=== PATIENT | female | born 1950 | race Caucasian/White ===

== ENCOUNTER → 2016-12-24 | Outpatient (REF) | payer MEDICARE, OTHER ==
[~2016-12-24] MED LIST: ALDA25TA2 PO; ASPI325T PO; CARV6.25 PO; PACE200T PO; SYNT25TA PO
[2016-12-24 11:53] LABS: ALBUMIN 3.8 GM/DL (3.2-5.2); ALBUMIN/GLOBULIN RATIO 1.15 (1.00-1.93); ALKALINE PHOSPHATASE 100 U/L (45-117); ALT/SGPT 21 U/L (12-78); ANION GAP 8 MEQ/L (8-16); AST/SGOT 13 U/L (15-37); BILIRUBIN,TOTAL 0.6 MG/DL (0.2-1.0); BLOOD UREA NITROGEN 19 MG/DL (7-18); CALCIUM LEVEL 9.1 MG/DL (8.8-10.2); CARBON DIOXIDE LEVEL 30 MEQ/L (21-32); CHLORIDE LEVEL 104 MEQ/L (98-107); CREATININE FOR GFR 0.96 MG/DL (0.55-1.02); FREE T4 1.23 NG/DL (0.76-1.46); GLOMERULAR FILTRATION RATE > 60.0 (>45); GLUCOSE, FASTING 81 MG/DL (80-110); POTASSIUM SERUM 4.4 MEQ/L (3.5-5.1); SODIUM LEVEL 142 MEQ/L (136-145); TOTAL PROTEIN 7.1 GM/DL (6.4-8.2)
[2016-12-24 12:00] LABS: BASO % 0.6 % (0.0-1.0); EOS # 0.1 K/mm3 (0.0-0.50); EOS % 2.3 % (0.0-3.0); LARGE UNSTAINED CELL # 0.2 K/mm3 (0.0-0.4); LARGE UNSTAINED CELL % 2.8 % (0.0-4.0); LYMPH % 35.4 % (24.0-44.0); MEAN CORPUSCULAR HEMOGLOBIN 29.4 pg (27.0-33.0); MEAN CORPUSCULAR HGB CONC 31.9 g/dl (32.0-36.5); MEAN CORPUSCULAR VOLUME 92.1 fl (80.0-96.0); MONO # 0.3 K/mm3 (0.0-0.8); MONO % 4.9 % (0.0-5.0); NEUTROPHILS # 3.1 K/mm3 (1.8-7.7); PLATELET COUNT, AUTOMATED 354 k/mm3 (150-450); WHITE BLOOD COUNT 5.7 K/mm3 (4.0-10.0)
== END ==
LOC: M SFHCPLAZ 09:56
PROVIDERS: ATTEND Dermatology
DX: L29.9 Pruritus, unspecified (principal)
CPT/HCPCS: 36415; 80053; 84439; 84443; 85025; G0463

== ENCOUNTER → 2017-01-21 | Outpatient (REF) | payer MEDICARE, OTHER | LOC: M SFHCADAM 08:12 | PROVIDERS: ATTEND Family Medicine | DX: E78.2 Mixed hyperlipidemia (principal) ==

== ENCOUNTER → 2017-01-22 | Outpatient (CLI) | payer MEDICARE, OTHER ==
--- NOTE | 2017-01-22 13:43 | REP ---
THYROID SONOGRAPHY: HISTORY: Thyroid nodule. Patient on thyroid hormone treatment. Comparison thyroid sonography May 14, 2010. FINDINGS: Thyroid isthmus is 0.5 cm in thickness. Right lobe dimensions of 4.4 x 1.4 x 1.6 cm. Left lobe measures 4.5 x 1.5 x 1.6 cm. Gland remains heterogeneous bilaterally. There is a 1.1 x 0.9 x 0.8 cm somewhat heterogeneous predominantly solid nodule in the lower pole of the left lobe. No other identifiable thyroid nodule. IMPRESSION: Heterogeneous glandular texture. One predominantly solid nodule seen today lower pole left lobe 1.1 cm in greatest diameter. Signed by Radhames Johnson MD 01/22/2017 04:46 P
== END ==
LOC: M RAD 09:45
PROVIDERS: ATTEND Family Medicine
DX: E04.1 Nontoxic single thyroid nodule (principal)

== ENCOUNTER → 2017-02-16 | Outpatient (CLI) | payer MEDICARE, OTHER ==
--- NOTE | 2017-02-17 08:29 | DEXA ---
AP SPINE L1 - L4 0.928 -2.2 -0.4 LT FEMUR TOTAL 0.726 -2.2 -0.9 RT FEMUR TOTAL 0.728 -2.2 -0.9 TOTAL BODY TOTAL OTHER DUAL FEMUR FRAX* ASSESSMENT Risk factors: History of adult fractures. 10 year probability of fracture Major osteoporotic fracture 21.8 % Hip fracture 4.9 % COMMENTS: There is low bone density of the spine and hips. The density of the spine has increased 1.9% since the initial exam on 2009. The spine density has decreased 3.7% since the most recent exam on 02/06/2012. The density of the left hip has increased 0.1% since the initial exam on 2009. The density of the left hip has decreased 3.7% since the most recent exam on 01/2012. The density of the right hip has decreased 1.8% since the initial exam on 2009. The density of the right hip has decreased 1.0% since the most recent exam on . FOLLOW-UP: Recommendation for the next bone density exam: 2 years. CLAUDIAD
== END ==
LOC: M WHC 10:01
PROVIDERS: ATTEND Family Medicine
DX: M85.80 Other specified disorders of bone density and structure, unspecified site (principal); Z78.0 Asymptomatic menopausal state

== ENCOUNTER → 2017-08-18 | Outpatient (REF) | payer MEDICARE, OTHER ==
[2017-08-18 16:10] LABS: ANION GAP 6 MEQ/L (8-16); BLOOD UREA NITROGEN 23 MG/DL (7-18); CARBON DIOXIDE LEVEL 29 MEQ/L (21-32); CHLORIDE LEVEL 109 MEQ/L (98-107); CREATININE FOR GFR 0.88 MG/DL (0.55-1.02); GLOMERULAR FILTRATION RATE > 60.0 (>45); GLUCOSE, FASTING 85 MG/DL (80-110); POTASSIUM SERUM 4.3 MEQ/L (3.5-5.1); SODIUM LEVEL 144 MEQ/L (136-145)
== END ==
LOC: M LABDRWAD 15:51
PROVIDERS: ATTEND Nurse Practitioner Family
DX: I11.9 Hypertensive heart disease without heart failure (principal)

== ENCOUNTER → 2017-09-02 | Outpatient (CLI) | payer MEDICARE, OTHER ==
--- NOTE | 2017-09-02 09:48 | REPMRS ---
Patient History The patient states she had a clinical breast exam in 08/2017. Patient is postmenopausal. No known family history of cancer. Took hormonal contraceptives for 5 years. Took unspecified hormones for 3 years. Digital Woman Screen Mammo: September 02, 2017 - Exam #: [id number] Bilateral CC and MLO view(s) were taken. Technologist: Vidhya Cao, Technologist Prior study comparison: May 13, 2016, digital woman screen mammo performed at [facility]. March 21, 2015, bilateral digital mammo screening bilat, performed at [facility]. November 22, 2013, bilateral bilat screen digital mammo, performed at [facility] ([facility]). FINDINGS: There are scattered fibroglandular densities. There has been no change in the appearance of the mammogram from the prior studies. There is a mild amount of scattered fibroglandular density which is fairly symmetric. There is no interval development of dominant mass, architectural distortion, or clustered microcalcification suggestive of malignancy. ASSESSMENT: BI-RADS/ACR category 1 mammogram. Negative. Recommendation Routine screening mammogram in 1 year (for women over age 40). This mammogram was interpreted with the aid of an FDA-approved computer-aided dectection system. Electronically Signed By: Natalio Johnson MD 09/02/17 0980
== END ==
LOC: M WHC 09:01
PROVIDERS: ATTEND Obstetrics & Gynecology
DX: Z12.31 Encounter for screening mammogram for malignant neoplasm of breast (principal); Z78.0 Asymptomatic menopausal state

== ENCOUNTER → 2018-06-24 | Outpatient (REF) | payer MEDICARE, OTHER | LOC: M LAB REF 13:08 | DX: N39.0 Urinary tract infection, site not specified (principal) | CPT/HCPCS: 87186 ==

== ENCOUNTER → 2018-09-18 | Outpatient (REF) | payer MEDICARE, OTHER | LOC: M LAB REF 13:29 | PROVIDERS: ATTEND Physician Assistant Medical | DX: N39.0 Urinary tract infection, site not specified (principal) ==

== ENCOUNTER → 2018-10-26 | Outpatient (CLI) | payer MEDICARE, OTHER ==
--- NOTE | 2018-10-26 10:06 | REPMRS ---
Patient History The patient states she had a clinical breast exam in 08/2018. No known family history of cancer. Took hormonal contraceptives for 5 years. Took unspecified hormones for 3 years. Digital Woman Screen Mammo: October 26, 2018 - Exam #: [id number] Bilateral CC and MLO view(s) were taken. Technologist: Vidhya Cao, Technologist Prior study comparison: September 02, 2017, digital woman screen mammo performed at [facility]. May 13, 2016, digital woman screen mammo performed at [facility]. March 21, 2015, bilateral digital mammo screening bilat, performed at [facility]. FINDINGS: There are scattered fibroglandular densities. There is a moderate amount of residual fibroglandular tissue which is fairly symmetric. There is no interval development of dominant mass, architectural distortion, or clustered microcalcification typical of malignancy. There has been no change in the appearance of the mammogram from the prior studies. 3-D tomosynthesis shows no additional findings. Assessment: BI-RADS/ACR category 1 mammogram. Negative Mammogram. Recommendation Routine screening mammogram of both breasts in 1 year (for women over age 40). This patient's Lifetime Breast Cancer RIsk is estimated at 6.2 %. This mammogram was interpreted with the aid of an FDA-approved computer-aided dectection system. Electronically Signed By: Natalio Johnson MD 10/26/18 1877
== END ==
LOC: M WHC 08:14
PROVIDERS: ATTEND Obstetrics & Gynecology
DX: Z12.31 Encounter for screening mammogram for malignant neoplasm of breast (principal); Z92.0 Personal history of contraception; Z92.29 Personal history of other drug therapy

== ENCOUNTER → 2019-10-25 | Outpatient (REF) | payer MEDICARE, OTHER ==
[2019-10-25 17:21] LABS: HEMOGLOBIN 14.5 g/dl (12.0-15.5); MEAN CORPUSCULAR HGB CONC 32.2 g/dl (32.0-36.5); PLATELET COUNT, AUTOMATED 394 10^3/uL (150-450); RED BLOOD COUNT 4.84 10^6/uL (4.00-5.40); WHITE BLOOD COUNT 7.3 10^3/uL (4.0-10.0)
[2019-10-25 17:22] LABS: ALBUMIN 4.1 GM/DL (3.2-5.2); ALT/SGPT 16 U/L (12-78); BILIRUBIN,TOTAL 0.5 MG/DL (0.2-1.0); BLOOD UREA NITROGEN 18 MG/DL (7-18); CALCIUM LEVEL 9.2 MG/DL (8.8-10.2); CARBON DIOXIDE LEVEL 27 MEQ/L (21-32); CHLORIDE LEVEL 105 MEQ/L (98-107); CHOLESTEROL LEVEL 309 MG/DL (<200); CHOLESTEROL RISK RATIO 4.544 (<5); CREATININE FOR GFR 0.88 MG/DL (0.55-1.30); FREE T4 1.33 NG/DL (0.76-1.46); GLOMERULAR FILTRATION RATE > 60.0 (>45); GLUCOSE, FASTING 76 MG/DL (70-100); HDL CHOLESTEROL 68 MG/DL (>40); LDL CHOLESTEROL 222 MG/DL (<100); NON-HDL-C 241 MG/DL; POTASSIUM SERUM 4.3 MEQ/L (3.5-5.1); SODIUM LEVEL 139 MEQ/L (136-145); TOTAL PROTEIN 7.3 GM/DL (6.4-8.2); TRIGLYCERIDES LEVEL 94 MG/DL (<150)
== END ==
LOC: M SFHCADAM 11:41
PROVIDERS: ATTEND Family Medicine
DX: I48.0 Paroxysmal atrial fibrillation (principal); M85.80 Other specified disorders of bone density and structure, unspecified site; E04.1 Nontoxic single thyroid nodule; E78.2 Mixed hyperlipidemia; Z23 Encounter for immunization
CPT/HCPCS: 80053; 80061; 84439; 84443; 85027; 90670; G0009; G0463

== ENCOUNTER → 2019-11-23 | Outpatient (CLI) | payer MEDICARE, OTHER ==
--- NOTE | 2019-11-23 09:45 | REPMRS ---
Patient History The patient states she had a clinical breast exam in October 2019.No known family history of cancer. Took hormonal contraceptives for 5 years. Took unspecified hormones for 3 years. Digital Woman Screen Mammo: November 23, 2019 - Exam #: [id number] Bilateral CC and MLO view(s) were taken. Technologist: Kemi Chi, Technologist Prior study comparison: October 26, 2018, bilateral digital woman screen mammo performed at [facility]. September 02, 2017, digital woman screen mammo performed at [facility]. May 13, 2016, digital woman screen mammo performed at [facility]. FINDINGS: There are scattered fibroglandular densities. There has been no change in the appearance of the mammogram from the prior studies. There is a mild amount of scattered fibroglandular density which is fairly symmetric. There is no interval development of dominant mass, architectural distortion, or grouped microcalcification suggestive of malignancy. 3-D tomosynthesis shows no additional findings. Assessment: BI-RADS/ACR category 1 mammogram. Negative Mammogram. Recommendation Routine screening mammogram of both breasts in 1 year (for women over age 40). This patient's Lifetime Breast Cancer Risk is estimated at 5.8 %. This mammogram was interpreted with the aid of an FDA-approved computer-aided dectection system. Electronically Signed By: Natalio Johnson MD 11/23/19 0944
== END ==
LOC: M WHC 09:04
PROVIDERS: ATTEND Obstetrics & Gynecology
DX: Z12.31 Encounter for screening mammogram for malignant neoplasm of breast (principal); Z92.0 Personal history of contraception; Z92.29 Personal history of other drug therapy

== ENCOUNTER → 2019-11-23 | Outpatient (CLI) | payer MEDICARE, OTHER ==
--- NOTE | 2019-11-23 09:55 | REP ---
Clinical: Follow-up thyroid nodule. Technique: Real time chaparro scale and color ultrasound examination using linear high frequency transducer. Comparison: 01/22/2017 Findings: The thyroid gland is heterogeneous but normal in contour and size. Right lobe measures 3.6 x 1.1 x 1.3 cm without cyst or nodule. Isthmus measures 4.9 mm in width. Left lobe measures 2.9 x 1.0 x 1.0 cm and includes 1.1 x 0.6 x 0.8 cm hypoechoic nodule at the inferior pole unchanged from prior examination. Impression: Solitary hypoechoic nodule in the left lobe unchanged from prior examination.
== END ==
LOC: M WHC 08:58
PROVIDERS: ATTEND Family Medicine
DX: E04.1 Nontoxic single thyroid nodule (principal); Z13.820 Encounter for screening for osteoporosis; Z12.31 Encounter for screening mammogram for malignant neoplasm of breast; Z92.0 Personal history of contraception; Z92.29 Personal history of other drug therapy; M85.88 Other specified disorders of bone density and structure, other site

== ENCOUNTER → 2020-01-19 | Outpatient (REF) | payer MEDICARE, OTHER | LOC: M SFHCADAM 11:34 | PROVIDERS: ATTEND Family Medicine | DX: N30.90 Cystitis, unspecified without hematuria (principal) | CPT/HCPCS: 87088; 87186; G0463 ==

== ENCOUNTER → 2020-09-05 | Outpatient (REF) | payer MEDICARE, OTHER ==
[~2020-09-05] MED LIST changes: +FLEC50HA PO; +LEVO88TA3 PO; +SPIR-10 PO
[2020-09-05 13:41] LABS: HEMATOCRIT 43.4 % (36.0-47.0); MEAN CORPUSCULAR HEMOGLOBIN 29.7 pg (27.0-33.0); MEAN CORPUSCULAR HGB CONC 32.3 g/dl (32.0-36.5); MEAN CORPUSCULAR VOLUME 91.9 fl (80.0-96.0); PLATELET COUNT, AUTOMATED 349 10^3/uL (150-450); RED BLOOD COUNT 4.72 10^6/uL (4.00-5.40); WHITE BLOOD COUNT 5.1 10^3/uL (4.0-10.0)
[2020-09-05 14:05] LABS: BLOOD UREA NITROGEN 19 MG/DL (7-18); CALCIUM LEVEL 9.1 MG/DL (8.8-10.2); CARBON DIOXIDE LEVEL 28 MEQ/L (21-32); CHLORIDE LEVEL 106 MEQ/L (98-107); CREATININE FOR GFR 0.92 MG/DL (0.55-1.30); GLOMERULAR FILTRATION RATE > 60.0 (>45); GLUCOSE, FASTING 80 MG/DL (70-100); POTASSIUM SERUM 4.4 MEQ/L (3.5-5.1); SODIUM LEVEL 140 MEQ/L (136-145)
== END ==
LOC: M LABDRWAD 12:20
PROVIDERS: ATTEND Podiatrist Foot & Ankle Surgery
DX: M20.11 Hallux valgus (acquired), right foot (principal)

== ENCOUNTER → 2020-09-07 | Outpatient (CLI) | payer MEDICARE, OTHER ==
[~2020-09-07] MED LIST changes: +HYDR-3713 PO
== END ==
LOC: M LABSMTC 10:11
PROVIDERS: ATTEND Anesthesiology
DX: Z01.812 Encounter for preprocedural laboratory examination (principal); Z20.828 Contact with and (suspected) exposure to other viral communicable diseases

== ENCOUNTER 2020-09-12 07:20 | Day surgery (SDC) | payer MEDICARE, OTHER ==
[~2020-09-12] VITALS: Ht 160 cm; Wt 63.5 kg
[~2020-09-12 07:20] MED LIST changes: -HYDR-3713 PO; +LR 1,000 ML IV ONE; +ceFAZolin SOD 2 GM in IV 1 EA IV ONE
[2020-09-12] MEDS ORDERED: LIDOCAINE 1% SDV 30ML VIAL As Ordered ONE (07:30)
[2020-09-12] MEDS ORDERED: BUPIVACAINE HCL 0.5% 30 ML VIAL As Ordered ONE (07:30)
[2020-09-12] MEDS ORDERED: propofoL 200 MG/20 ML VIAL As Ordered ONE (08:18)
[2020-09-12] MEDS ORDERED: fentaNYL 100 MCG/2 ML INJECTION (J3010) As Ordered ONE (08:18)
[2020-09-12] MEDS ORDERED: ONDANSETRON 4MG/2ML VIAL As Ordered ONE (08:18)
[2020-09-12] MEDS ORDERED: LIDOCAINE 2% 100MG/5ML SDV (FOR ANES.) As Ordered ONE (08:18)
[2020-09-12] MEDS ORDERED: MIDAZOLAM INJ 2MG/2ML VIAL (J2250 PER 1MG) As Ordered ONE (08:28)
[2020-09-12] MEDS ORDERED: ePHEDrine SULFATE 25 MG/5 ML(5MG/ML) SYRINGE As Ordered ONE (09:24)
[2020-09-12] MEDS: dexameTHASONE 4 MG/ML 1ML VIAL (J1100 PER 1MG) As Ordered ONE ×2 (10:05→10:09)
[2020-09-12] MEDS ORDERED: HYDR-3713 PO (10:18)
--- NOTE | 2020-09-12 10:39 | RO ---
OPERATIVE NOTE DATE OF OPERATION: 09/12/2020 SURGEON: Suhail Ramey DPM PHONE MANAGER: None. PREOPERATIVE DIAGNOSIS: Right foot bunion hallux valgus. POSTOPERATIVE DIAGNOSIS: Right foot bunion hallux valgus. PROCEDURE: Right bunionectomy with first metatarsal osteotomy and Newton osteotomy. ANESTHESIA: Monitored anesthesia care and preop injection of 17 mL of 1:1 mixture 1% Lidocaine and 0.5% Marcaine plain. ESTIMATED BLOOD LOSS: Minimal. MATERIALS: Arthrex DynaNite staple x2, MTF DBX bone putty, and MTF crushed cancellous chips. COMPLICATIONS: None. CONDITION: Stable. INDICATIONS FOR PROCEDURE: Marjorie Contreras is a 69-year-old female who presents to [facility] with complaints of painful bunion to her right foot. She presents today for surgical correction. The patient side and site were identified and marked in the preoperative area. Consent was reviewed and obtained. The risks, complications, and alternatives to the procedure were explained to the patient in detail and all questions were answered. DESCRIPTION OF PROCEDURE: The patient was brought to the operating room and placed on the table in the supine position. Monitored anesthesia care was delivered by the anesthesia team. A preop injection of 17 mL of 1:1 mix of 1% Lidocaine plain and 0.5% Marcaine plain were injected in the right foot. The right foot was prepped and draped in the normal sterile fashion. Tourniquet was applied to the right ankle, inflated at 250 mmHg. Dorsal incision was drawn and carried through with #15 blade over the first metatarsophalangeal joint capsule. T-capsulotomy was performed exposing the metatarsal head. Following this, a lateral release was performed releasing the adductor tendon and sesamoidal ligaments in the lateral capsule. Large exostosis was noted on the dorsal aspect of the metatarsal head, which was removed with the sagittal saw. There was cartilaginous deficit in the metatarsal head, which was drilled with K-wire. The medial eminence was resected with a sagittal saw. A large bone cyst was noted in the metatarsal head and neck. The osteotomy was performed of the metatarsal head transposing it laterally. Screw fixation was not possible due to cyst. An Arthrex DynaNite staple was used with good compression. Next, attention was paid to the proximal phalanx and wedge of the medical cortex was removed with the sagittal saw, and this was fixated with an Arthrex DynaNite staple. The bone cyst was packed using a combination of crushed cancellous bone chips and DBX bone putty. The site was irrigated with normal saline. Capsular repair was then performed with 3-0 Vicryl, subcutaneous closure with 4-0 Vicryl, and skin closure with 4-0 nylon. Sterile dressings were applied. The tourniquet was deflated. The patient will be partial weightbearing. She will follow up in office in two weeks.
[2020-09-12 11:15] VITALS: BP 150/67
== END 2020-09-12 11:15 | disposition home or self-care (01) ==
LOC: M SDC 07:20
PROVIDERS: ATTEND Podiatrist Foot & Ankle Surgery
DX: M20.11 Hallux valgus (acquired), right foot (principal); E03.9 Hypothyroidism, unspecified; M81.0 Age-related osteoporosis without current pathological fracture; Z79.899 Other long term (current) drug therapy
CPT/HCPCS: 28299; 88300; 97116; C1713; C1762; J0690; J1100; J2250; J2405; J3010

== ENCOUNTER → 2020-11-27 | Outpatient (CLI) | payer SELFPAY ==
[~2020-11-27] MED LIST changes: +HYDR-3713 PO; -LR 1,000 ML IV ONE; -ceFAZolin SOD 2 GM in IV 1 EA IV ONE
== END ==
LOC: M LABSMTC 10:23
PROVIDERS: ATTEND Pediatrics
DX: Z20.822 Contact with and (suspected) exposure to COVID-19 (principal)

== ENCOUNTER → 2020-12-28 | Outpatient (REF) | payer MEDICARE, OTHER ==
[2020-12-28 16:39] LABS: HEMATOCRIT 42.2 % (36.0-47.0); HEMOGLOBIN 13.5 g/dl (12.0-15.5); MEAN CORPUSCULAR HEMOGLOBIN 29.8 pg (27.0-33.0); MEAN CORPUSCULAR VOLUME 93.2 fl (80.0-96.0); PLATELET COUNT, AUTOMATED 350 10^3/uL (150-450); RED BLOOD COUNT 4.53 10^6/uL (4.00-5.40); WHITE BLOOD COUNT 6.4 10^3/uL (4.0-10.0)
[2020-12-28 17:21] LABS: ALT/SGPT 23 U/L (12-78); BILIRUBIN,TOTAL 0.4 MG/DL (0.2-1.0); BLOOD UREA NITROGEN 20 MG/DL (7-18); CALCIUM LEVEL 9.4 MG/DL (8.8-10.2); CARBON DIOXIDE LEVEL 29 MEQ/L (21-32); CHLORIDE LEVEL 107 MEQ/L (98-107); CHOLESTEROL LEVEL 333 MG/DL (<200); CHOLESTEROL RISK RATIO 4.757 (<5); CREATININE FOR GFR 0.76 MG/DL (0.55-1.30); FREE T4 1.32 NG/DL (0.76-1.46); GLOMERULAR FILTRATION RATE > 60.0 (>39); GLUCOSE, FASTING 86 MG/DL (70-100); HDL CHOLESTEROL 70 MG/DL (>40); LDL CHOLESTEROL 225 MG/DL (<100); MAGNESIUM LEVEL 2.5 MG/DL (1.8-2.4); NON-HDL-C 263 MG/DL; POTASSIUM SERUM 4.4 MEQ/L (3.5-5.1); SODIUM LEVEL 141 MEQ/L (136-145); TOTAL PROTEIN 7.4 GM/DL (6.4-8.2); TRIGLYCERIDES LEVEL 192 MG/DL (<150)
== END ==
LOC: M SFHCADAM 14:07
PROVIDERS: ATTEND Family Medicine
DX: E78.2 Mixed hyperlipidemia (principal); E03.9 Hypothyroidism, unspecified; I48.0 Paroxysmal atrial fibrillation
CPT/HCPCS: 80053; 80061; 83735; 84439; 84443; 85027; G0463

== ENCOUNTER → 2021-04-11 | Outpatient (REF) | payer MEDICARE, OTHER ==
[2021-04-11 14:30] LABS: ALBUMIN 3.8 GM/DL (3.2-5.2); ALT/SGPT 27 U/L (12-78); BILIRUBIN,TOTAL 0.5 MG/DL (0.2-1.0); BLOOD UREA NITROGEN 21 MG/DL (7-18); CARBON DIOXIDE LEVEL 29 MEQ/L (21-32); CHLORIDE LEVEL 108 MEQ/L (98-107); CHOLESTEROL LEVEL 244 MG/DL (<200); CHOLESTEROL RISK RATIO 3.696 (<5); CREATININE FOR GFR 0.78 MG/DL (0.55-1.30); GLOMERULAR FILTRATION RATE > 60.0 (>39); GLUCOSE, FASTING 84 MG/DL (70-100); HDL CHOLESTEROL 66 MG/DL (>40); LDL CHOLESTEROL 164 MG/DL (<100); NON-HDL-C 178 MG/DL; POTASSIUM SERUM 4.7 MEQ/L (3.5-5.1); SODIUM LEVEL 142 MEQ/L (136-145); TOTAL PROTEIN 6.8 GM/DL (6.4-8.2); TRIGLYCERIDES LEVEL 68 MG/DL (<150)
== END ==
LOC: M SFHCADAM 08:21
PROVIDERS: ATTEND Family Medicine
DX: E78.2 Mixed hyperlipidemia (principal)

== ENCOUNTER → 2022-09-05 | Outpatient (REF) | payer MEDICARE, OTHER ==
[2022-09-05 14:00] LABS: HEMATOCRIT 43.7 % (36.0-47.0); HEMOGLOBIN 13.6 g/dl (12.0-15.5); MEAN CORPUSCULAR HEMOGLOBIN 29.8 pg (27.0-33.0); MEAN CORPUSCULAR HGB CONC 31.1 g/dl (32.0-36.5); MEAN CORPUSCULAR VOLUME 95.8 fl (80.0-96.0); PLATELET COUNT, AUTOMATED 343 10^3/uL (150-450); RED BLOOD COUNT 4.56 10^6/uL (4.00-5.40); WHITE BLOOD COUNT 5.1 10^3/uL (4.0-10.0)
[2022-09-05 14:36] LABS: THYROID STIMULATING HORMONE 3.568 uIU/ML (0.55-4.78)
[2022-09-05 14:37] LABS: FREE T4 1.22 NG/DL (0.89-1.76)
[2022-09-05 14:42] LABS: ALBUMIN 3.7 G/DL (3.2-5.2); ALKALINE PHOSPHATASE 82 U/L (46-116); ALT/SGPT 32 U/L (7.0-40); AST/SGOT 28 U/L (<34); BILIRUBIN,TOTAL 0.6 MG/DL (0.3-1.2); BLOOD UREA NITROGEN 19 MG/DL (9-23); CALCIUM LEVEL 9.2 MG/DL (8.3-10.6); CARBON DIOXIDE LEVEL 28 MMOL/L (20-31); CHLORIDE LEVEL 106 MMOL/L (98-107); CHOLESTEROL LEVEL 246 MG/DL (<200); CHOLESTEROL RISK RATIO 3.43 (<5); GLOMERULAR FILTRATION RATE > 60.0 (>39); GLUCOSE, FASTING 90 MG/DL (74-106); HDL CHOLESTEROL 71.6 MG/DL (>40); NON-HDL-C 174 MG/DL; POTASSIUM SERUM 5.2 MMOL/L (3.5-5.1); SODIUM LEVEL 142 MMOL/L (136-145); TOTAL PROTEIN 6.6 G/DL (5.7-8.2); TRIGLYCERIDES LEVEL 67 MG/DL (<150)
== END ==
LOC: M SFHCLERA 08:00
PROVIDERS: ATTEND Family Medicine
DX: E78.2 Mixed hyperlipidemia (principal); E03.9 Hypothyroidism, unspecified; E04.2 Nontoxic multinodular goiter; I48.0 Paroxysmal atrial fibrillation

== ENCOUNTER → 2022-09-19 | Outpatient (CLI) | payer MEDICARE, OTHER | LOC: M WHC 08:56 | PROVIDERS: ATTEND Nurse Practitioner Family | DX: Z12.31 Encounter for screening mammogram for malignant neoplasm of breast (principal) ==

== ENCOUNTER → 2022-09-19 | Outpatient (REF) | payer MEDICARE, OTHER | LOC: M PLALAB 09:53 | PROVIDERS: ATTEND Nurse Practitioner Family | DX: Z12.4 Encounter for screening for malignant neoplasm of cervix (principal) | CPT/HCPCS: 87624; G0123 ==

== ENCOUNTER → 2023-05-28 | Outpatient (CLI) | payer MEDICARE, OTHER | LOC: M PLAIMG 11:20 | PROVIDERS: ATTEND Physical Medicine & Rehabilitation | DX: M47.894 Other spondylosis, thoracic region (principal); S22.080A Wedge compression fracture of T11-T12 vertebra, initial encounter for closed fracture; M45.6 Ankylosing spondylitis lumbar region; M51.34 Other intervertebral disc degeneration, thoracic region; M51.24 Other intervertebral disc displacement, thoracic region; M48.04 Spinal stenosis, thoracic region; X58.XXXA Exposure to other specified factors, initial encounter; Y92.9 Unspecified place or not applicable; Y93.9 Activity, unspecified; Y99.9 Unspecified external cause status ==

== ENCOUNTER → 2023-07-29 | Outpatient (CLI) | payer MEDICARE, OTHER | LOC: M WHC 09:12 | PROVIDERS: ATTEND Family Medicine | DX: M81.0 Age-related osteoporosis without current pathological fracture (principal); M85.89 Other specified disorders of bone density and structure, multiple sites ==

== ENCOUNTER → 2023-12-07 | Outpatient (CLI) | payer MEDICARE, OTHER | LOC: M WHC 08:40 | PROVIDERS: ATTEND Nurse Practitioner Family | DX: Z12.31 Encounter for screening mammogram for malignant neoplasm of breast (principal) ==

== ENCOUNTER 2024-01-18 10:37 | Day surgery (SDC) | payer MEDICARE, OTHER ==
[~2024-01-18] VITALS: Ht 160 cm; Wt 63.0 kg
[~2024-01-18 10:37] MED LIST changes: +ALEN70TA82 PO; +ASPI81TA26 PO; +B-12100010 PO; +CALCTAB38 PO; +CO Q200C10 PO; +GALZ50CA PO; +KP F1200 PO; +MAGN500T12 PO; +MCTPAK PO; +PRAV20TA2 PO; +PROBCAP14 PO; +VITA-294 PO; +VITA200021 PO; +VITA500C24 PO; +[UNRECOGNIZED DRUG - CODE] PO; +[UNRECOGNIZED DRUG - CODE] PO
[2024-01-18] MEDS ORDERED: propofoL 200 MG/20 ML VIAL As Ordered ONE (13:03)
[2024-01-18] MEDS ORDERED: GLYCOPYRROLATE INJ 0.2 MG/ML 2 ML VIAL As Ordered ONE (13:04)
[2024-01-18 13:07] VITALS: TEMP 97.3
[2024-01-18 13:52] VITALS: BP 125/72; O2SAT 99
== END 2024-01-18 13:53 | disposition home or self-care (01) ==
LOC: M OPP 10:37
PROVIDERS: ATTEND Internal Medicine Gastroenterology
DX: R19.5 Other fecal abnormalities (principal); Z86.010 Personal history of colon polyps; K63.5 Polyp of colon; Q43.8 Other specified congenital malformations of intestine; I48.91 Unspecified atrial fibrillation; E03.9 Hypothyroidism, unspecified; E78.00 Pure hypercholesterolemia, unspecified; Z79.02 Long term (current) use of antithrombotics/antiplatelets; Z79.82 Long term (current) use of aspirin; Z79.83 Long term (current) use of bisphosphonates; Z79.84 Long term (current) use of oral hypoglycemic drugs; Z79.890 Hormone replacement therapy; Z91.018 Allergy to other foods; Z91.040 Latex allergy status

== ENCOUNTER → 2024-12-14 | Outpatient (REF) | payer MEDICARE, OTHER ==
[~2024-12-14] MED LIST changes: +NATU400C6 PO; -VITA-294 PO; +[UNRECOGNIZED DRUG - CODE] PO; -[UNRECOGNIZED DRUG - CODE] PO
[2024-12-14 10:14] LABS: HEMOGLOBIN 14.4 g/dl (12.0-15.5); MEAN CORPUSCULAR HEMOGLOBIN 30.1 pg (27.0-33.0); MEAN CORPUSCULAR HGB CONC 32.7 g/dl (32.0-36.5); MEAN CORPUSCULAR VOLUME 92.1 fl (80.0-96.0); PLATELET COUNT, AUTOMATED 350 10^3/uL (150-450); RED BLOOD COUNT 4.78 10^6/uL (4.00-5.40); WHITE BLOOD COUNT 5.9 10^3/uL (4.0-10.0)
[2024-12-14 10:44] LABS: ALBUMIN 3.9 G/DL (3.2-5.2); ALKALINE PHOSPHATASE 61 U/L (35-104); ALT/SGPT 22 U/L (7.0-40); AST/SGOT 16 U/L (<34); BILIRUBIN,TOTAL 0.8 MG/DL (0.3-1.2); BLOOD UREA NITROGEN 17 MG/DL (9-23); CALCIUM LEVEL 9.3 MG/DL (8.3-10.6); CARBON DIOXIDE LEVEL 30 MMOL/L (20-31); CHLORIDE LEVEL 106 MMOL/L (98-107); CHOLESTEROL LEVEL 254 MG/DL (<200); CHOLESTEROL RISK RATIO 3.65 (<5); CREATININE FOR GFR 0.87 MG/DL (0.55-1.30); GLOMERULAR FILTRATION RATE > 60.0 (>39); GLUCOSE, FASTING 83 MG/DL (74-106); HDL CHOLESTEROL 69.4 MG/DL (>40); LDL CHOLESTEROL 158.8 MG/DL (<100); MAGNESIUM LEVEL 2.2 MG/DL (1.8-2.4); NON-HDL-C 184.6 MG/DL; POTASSIUM SERUM 4.3 MMOL/L (3.5-5.1); SODIUM LEVEL 143 MMOL/L (136-145); TOTAL PROTEIN 7.1 G/DL (5.7-8.2); TRIGLYCERIDES LEVEL 129 MG/DL (<150)
[2024-12-14 10:46] LABS: FREE T4 0.66 NG/DL (0.89-1.76); THYROID STIMULATING HORMONE 7.004 uIU/ML (0.55-4.78)
[2024-12-14 10:47] LABS: TOTAL 25(OH) VITAMIN D 56.3 NG/ML (20.0-100.0)
== END ==
LOC: M SFHCADAM 08:33
PROVIDERS: ATTEND Family Medicine
DX: M81.0 Age-related osteoporosis without current pathological fracture (principal); E03.9 Hypothyroidism, unspecified; I48.0 Paroxysmal atrial fibrillation

== ENCOUNTER → 2024-12-22 | Outpatient (CLI) | payer MEDICARE, OTHER | LOC: M CARPUL 10:56 | PROVIDERS: ATTEND Registered Nurse | DX: I34.0 Nonrheumatic mitral (valve) insufficiency (principal); I36.1 Nonrheumatic tricuspid (valve) insufficiency ==

== ENCOUNTER → 2025-06-26 | Outpatient (REF) | payer MEDICARE, OTHER ==
[~2025-06-26] MED LIST changes: -GALZ50CA PO; -PRAV20TA2 PO; +PRAV20TA78 PO; +ZINC50CA4 PO
[2025-06-26 14:15] LABS: ALT/SGPT 17.0 U/L (7.0-40); AST/SGOT 19.0 U/L (<34); CALCIUM LEVEL 9.4 MG/DL (8.3-10.6); CARBON DIOXIDE LEVEL 29.0 MMOL/L (20-31); CHLORIDE LEVEL 105.0 MMOL/L (98-107); CHOLESTEROL LEVEL 273.0 MG/DL (<200); CHOLESTEROL RISK RATIO 3.7 (<5); CREATININE FOR GFR 0.87 MG/DL (0.55-1.30); GLOMERULAR FILTRATION RATE 69.9 (>39); LDL CHOLESTEROL 178.9 MG/DL (<100); NON-HDL-C 199.3 MG/DL; POTASSIUM SERUM 4.5 MMOL/L (3.5-5.1); SODIUM LEVEL 142.0 MMOL/L (136-145); TRIGLYCERIDES LEVEL 102.0 MG/DL (<150)
[2025-06-26 14:17] LABS: FREE T4 1.73 NG/DL (0.89-1.76)
== END ==
LOC: M SFHCADAM 07:38
PROVIDERS: ATTEND Family Medicine
DX: E03.9 Hypothyroidism, unspecified (principal); E78.2 Mixed hyperlipidemia; I48.0 Paroxysmal atrial fibrillation

== ENCOUNTER → 2025-07-18 | Outpatient (CLI) | payer MEDICARE, OTHER | LOC: M RAD 12:24 | PROVIDERS: ATTEND Family Medicine | DX: E04.2 Nontoxic multinodular goiter (principal) ==

== ENCOUNTER → 2025-09-15 | Outpatient (CLI) | payer MEDICARE, OTHER | LOC: M WHC 08:53 | PROVIDERS: ATTEND Physician Assistant | DX: Z12.31 Encounter for screening mammogram for malignant neoplasm of breast (principal); R92.323 Mammographic fibroglandular density, bilateral breasts ==

== ENCOUNTER → 2025-09-15 | Outpatient (REF) | payer MEDICARE, OTHER | LOC: M SFHCWAGY 13:23 | PROVIDERS: ATTEND Physician Assistant | DX: Z12.4 Encounter for screening for malignant neoplasm of cervix (principal); N95.2 Postmenopausal atrophic vaginitis ==